=== PATIENT | male | born 1955 | race Caucasian/White ===

== ENCOUNTER 2020-10-25 07:25 | Outpatient (CLI) | payer MEDICARE ==
--- NOTE | 2020-10-25 08:05 | RAD ---
Chest 2 views HISTORY: Preop. COMPARISON: 09/28/2019. FINDINGS: Cardiac silhouette is upper limits of normal in size. Pulmonary vasculature upper limits of normal.. Mediastinum is midline with postoperative changes, aortic calcification, and a multi lead left subcla vian cardiac electronic device. No lobar consolidation or pneumothorax. Minimal fluid in the right minor fissure. Metallic clips over the right axilla and upper abdomen. IMPRESSION : Borderline cardiomegaly and pulmonary vascular congestion. No florid edema. Atherosclerosis.
== END 2020-10-25 07:26 | disposition home or self-care (01) ==
LOC: NAV RAD 07:25
PROVIDERS: ATTEND Surgery
DX: Z01.818 Encounter for other preprocedural examination (principal); I51.7 Cardiomegaly; I70.0 Atherosclerosis of aorta; R09.89 Other specified symptoms and signs involving the circulatory and respiratory systems
CPT/HCPCS: 71046